=== PATIENT | male | born 1940 | race Caucasian/White ===

== ENCOUNTER 2016-09-09 00:49 | Emergency (ER) | payer MEDICARE, BC ==
[~2016-09-09] VITALS: Ht 182.9 cm; Wt 93.5 kg
[2016-09-09 00:58] VITALS: BP 159/97; PULSE 87; RESP 18; TEMP 97.6; O2SAT 96
[2016-09-09] MEDS ORDERED: PANT40TA3 PO (01:20)
[2016-09-09] MEDS ORDERED: METO50TA PO (01:20)
[2016-09-09] MEDS ORDERED: CALCTAB19 PO (01:20)
[2016-09-09] MEDS ORDERED: CLOP75TA PO (01:20)
[2016-09-09 02:36] LABS: BLOOD, URINE LARGE (NEG); GLUCOSE,URINE NEG (NEG); KETONE, URINE TRACE mg/dL (NEG); NITRITE,URINE NEG (NEG); PH, URINE 8.5 (5.0-8.5)
[2016-09-09 02:47] LABS: BACTERIA, URINE MANY /hpf; COMMENT (UR) CATH-CULTURE IND; CULTURE IF INDICATED CATH CULTURE IND; SQUAMOUS EPITHELIAL CELL URINE 0-5 /hpf (0-5); URINE COLOR YELLOW (YELLW/STRAW); WBC, URINE INNUM /hpf (0-5)
[2016-09-09] MEDS ORDERED: CIPR-9 PO (02:54)
--- NOTE | 2016-09-09 02:56 | PD ---
HPI Chief Complaint: Complaint Time Seen by Provider: 01:58 Travel History International Travel<30 days: No Contact w/Intl Traveler<30days: No Traveled to known affect area: No History of Present Illness HPI 76-year-old male presents to the emergency department by private transportation the care of her spouse for decreased urine output. Patient has history of prostatic enlargement and urinary retention. Patient's had urinary catheter in place since March 2015. Patient has catheter replaced approximately once monthly. Patient has had no urine output into the current urinary catheter bag since 9 PM. Patient complains of suprapubic bladder pressure. No reported fever chills nausea vomiting or flank pain. Patient has history of CVA with sequela PEG tube nonambulatory and hypertension. Patient reports pain 5/10 in intensity. PFSH Past Medical History Narrative Medical CVA prostate cancer urinary retention hypertension PEG tube insertion no tobacco use nursing notes reviewed Hx Anticoagulant Therapy: Yes (PLAVIX) Cancer: Yes (PROSTATE ) Cerebrovascular Accident: Yes Diminished Hearing: No GERD: Yes Hypertension: Yes Pneumonia: Yes Influenza Vaccination: Yes Past Surgical History Abdominal Surgery: Yes (FEEDING TUBE) Other Surgery: Yes (NOSE ) Social History Alcohol Use: No Tobacco Use: No Substance Use: No Allergies-Medications (Allergen,Severity, Reaction): Coded Allergies: Sulfa (Verified Allergy, Severe, ANGEOEDEMA, 09/09/16) Reported Meds & Prescriptions Reported Meds & Active Scripts Active Cipro (Ciprofloxacin HCl) 500 Mg Tab 500 Mg PO BID 7 Days Reported Calcium 600+D 200 (Calcium Carbonate-Vitamin D) 600-200 Mg-Unit Tab 1 Tab PO BID Clopidogrel (Clopidogrel Bisulfate) 75 Mg Tab 75 Mg PO DAILY Pantoprazole (Pantoprazole Sodium) 40 Mg Tab 40 Mg PO DAILY Metoprolol Tartrate 50 Mg Tab 50 Mg PO BID Review of Systems Except as stated in HPI: all other systems reviewed are Neg General / Constitutional: No: Fever, Chills HENT: No: Congestion Cardiovascular: No: Chest Pain or Discomfort Respiratory: No: Shortness of Breath Gastrointestinal: Positive: Abdominal Pain (suprpubic pressure) Genitourinary: Positive: Decreased Urinary Output Musculoskeletal: No: Myalgias, Arthralgias Skin: No Rash Neurologic: No: Weakness Psychiatric: No: Anxiety Hematologic/Lymphatic: No: Easy Bruising Physical Exam Narrative GENERAL: Well-developed well-nourished male in no acute distress no respiratory distress SKIN: Warm and dry. HEAD: Normocephalic. EYES: No scleral icterus. No injection or drainage. NECK: Supple, trachea midline. No JVD or lymphadenopathy. CARDIOVASCULAR: Regular rate and rhythm without murmurs, gallops, or rubs. RESPIRATORY: Breath sounds equal bilaterally. No accessory muscle use. GASTROINTESTINAL: Abdomen soft, non-tender, nondistended. Tenderness to palpation over the midline lower abdomen with mild distention. : Uncircumcised male with urinary catheter at urethral meatus no purulence or blood noted MUSCULOSKELETAL: No cyanosis, or edema. BACK: Nontender without obvious deformity. No CVA tenderness. Data Data Last Documented VS Vital Signs Date Time Temp Pulse Resp B/P Pulse Ox O2 Delivery O2 Flow Rate FiO2 09/09/16 00:58 97.6 87 18 159/97 96 Orders Urinary Catheter Insert/Apply (09/09/16 01:58) Urinary Catheter - Remove (09/09/16 01:58) Urinalysis - C+S If Indicated (09/09/16 02:27) Urine Culture (09/09/16 02:20) Levofloxacin (Levaquin) (09/09/16 03:00) Labs Laboratory Tests Test 09/09/16 02:20 Urine Color YELLOW Urine Turbidity CLOUDY Urine pH 8.5 Urine Specific [place] 1.017 Urine Protein 300 OR GREATER mg/dL Urine Glucose (UA) NEG mg/dL Urine Ketones TRACE mg/dL Urine Occult Blood LARGE Urine Nitrite NEG Urine Bilirubin NEG Urine Leukocyte Esterase LARGE Urine RBC 25-49 /hpf Urine WBC INNUM /hpf Urine Squamous Epithelial 0-5 /hpf Cells Urine Bacteria MANY /hpf Microscopic Urinalysis Comment CATH-CULTURE IND MDM Medical Decision Making Medical Screen Exam Complete: Yes Emergency Medical Condition: Yes Medical Record Reviewed: Yes Interpretation(s) UA: Positive blood positive leukocyte positive white blood cells positive bacteria culture indicated Differential Diagnosis Urinary catheter occlusion, catheter malfunction, UTI Narrative Course Patient presenting with urinary urgency and suprapubic pressure and distention with urinary catheter in place without urine output; catheter flushed without success; catheter replaced. Urinalysis specimen collected and sent for resulting Urinalysis abnormal and culture indicated patient given first dose of oral antibiotic Levaquin in the emergency department Patient is stable for outpatient management with close follow-up with primary care provider and urologist Diagnosis Primary Impression: Urinary catheter dysfunction Qualified Code: T83.018A - Urinary catheter dysfunction, initial encounter Additional Impression: Urinary catheter infection Qualified Code: T83.518A - Urinary catheter infection, initial encounter Referrals: Primary Care Physician 2 days Patient Instructions: General Instructions Additional Instructions: Take antibiotic as prescribed Follow-up with your urologist Follow-up with your primary care provider Return to the emergency department for any concerns or change in condition Take acetaminophen/Tylenol as needed for fever 100.4F or greater Med/Other Pt SpecificInfo: Prescription(s) given Scripts Ciprofloxacin (Cipro)500 Mg [id number] Mg PO BID 7 Days Ref 0 Prov:Kari Macias MD 09/09/16 Disposition: DISCHARGE HOME Condition: Stable Kari Macias MD Sep 09, 2016 02:56
[2016-09-09] MEDS ORDERED: LEVOFLOXACIN 500 MG TAB PO ONE (03:00)
[2016-09-09 03:27] VITALS: BP 152/88
== END 2016-09-09 03:33 | disposition home or self-care (01) ==
LOC: PHED 00:49
DX: T83.018A Breakdown (mechanical) of other urinary catheter, initial encounter (principal); T83.518A Infection and inflammatory reaction due to other urinary catheter, initial encounter; B96.89 Other specified bacterial agents as the cause of diseases classified elsewhere
CPT/HCPCS: 51702; 81001; 87077; 87086; 87186